=== PATIENT | male | born 1995 | race Caucasian/White ===

== ENCOUNTER 2016-12-01 16:43 | Emergency (ER) | payer BC ==
[~2016-12-01] VITALS: Ht 177.8 cm; Wt 83.5 kg
[2016-12-01 16:55] VITALS: Ht 177.8 cm; Wt 83.5 kg
[2016-12-01] MEDS ORDERED: LIDOCAINE 1%/EPI (MDV) 20 ML INJ INFIL ONE (18:30)
--- NOTE | 2016-12-01 18:32 | ERD ---
ER Documentation Chief Complaint Date/Time DATE: 12/01/16 TIME: 18:28 Chief Complaint POSSIBLE ABSCESS LEFT SIDE CHIN AREA X 5 DAYS HPI Patient is a 21-year-old male who presents with gradual onset, constant, progressive pain and swelling to left chin. Symptoms began 5 days ago, per patient appeared as a small pimple. Yesterday, his mother tried to pop the pimple, and since that time he has had increased pain and mild swelling to the area. Patient does state that there is moderate amount of pus expressed yesterday. No spontaneous drainage, no fever. ROS All systems reviewed and are negative except as per history of present illness. Medications Home Meds Active Scripts Ibuprofen* (Motrin*) 600 Mg Tab, 600 MG PO Q8, #30 TAB Prov:GRISEL TONG MD 12/01/16 Cephalexin* (Keflex*) 500 Mg Capsule, 500 MG PO QID for 10 Days, CAP Prov:GRISEL TONG MD 12/01/16 Sulfamethoxazole-Trimethoprim* (Bactrim* DS) 800-160 Mg Tab, 1 TAB PO BID for 10 Days, TAB Prov:GRISEL TONG MD 12/01/16 Reported Medications [None] No Conflict Check 08/17/09 Allergies Allergies: Coded Allergies: No Known Allergies (Verified Allergy, Mild, 08/17/09) PMhx/Soc Past medical history: None Past surgical history: None Social history: Denies tobacco or alcohol Medical and Surgical Hx: pt denies Surgical Hx History of Surgery: No Hx Neurological Disorder: No Hx Respiratory Disorders: No Hx Cardiac Disorders: Yes (MURMUR) Hx Miscellaneous Medical Probl: No Hx Alcohol Use: No Hx Substance Use: No Hx Tobacco Use: No Smoking Status: Never smoker FmHx Family History: No coronary disease, No diabetes Physical Exam Vitals Vital Signs Date Time Temp Pulse Resp B/P Pulse Ox O2 Delivery O2 Flow Rate FiO2 12/01/16 16:55 97.7 77 18 132/85 99 Physical Exam Const: Alert, no acute distress Head: Atraumatic Eyes: Normal Conjunctiva, no pallor or icterus ENT: Normal External Ears, Nose and Mouth. Moist mucous membranes. 3 cm in diameter area of erythema and induration to left lower mandible 3 cm lateral to midline. No spontaneous drainage. Patient has a lemus and location is at the level facial hair. Neck: Full range of motion. No significant adenopathy. No meningismus. 1 cm midline nontender firm neck nodule Resp: Clear to auscultation bilaterally Cardio: Regular rate and rhythm, no murmurs Abd: Soft, non tender, non distended. Skin: No petechiae or rashes Ext: No cyanosis, or edema Neur: Awake and alert, cranial nerves II through XII intact bilaterally, strength and sensation intact in 4 extremities. Psych: Normal Mood and Affect Results 24 hrs Current Medications Medications (Trade) Dose Ordered Sig/Elizabeth Route PRN Reason Start Time Stop Time Status Last Admin Dose Admin Lidocaine/ Epinephrine (Xylocaine 1%/ Epi (Mdv) 20 ml) 20 ml ONCE ONCE INFIL 12/01/16 18:30 12/01/16 18:31 DC Lidocaine/ Epinephrine (Xylocaine 1%/ Epi) 20 ml ONCE ONCE INFIL 12/01/16 19:00 12/01/16 19:01 DC Procedures/MDM Abscess Incision and Drainage with irrigation by me: Location: Left chin Anesthesia: Local 1% lidocaine with epinephrine Technique: Cleaned with chlorhexidine, incised with 11 blade scalpel approximately 5 mm, moderate pus expressed, gently probed with forceps Packing: None Complications: None 48 hour wound check. Scar minimization instructions given. Exam and w/u not consistent w/ sepsis, deep space infection, or foreign body. MDM: Patient with abscess to left chin with mild cellulitis. I&D performed with expression of moderate amount of pus. There is no evidence of deep space infection. The area of cellulitis and small and focal. The patient is appropriate for outpatient treatment with Bactrim and Keflex. Have advised the patient and mother on return precautions. We will give Motrin for pain. Based on history, it is likely that the abscess began as a folliculitis. Advised the patient that the risk of recurrence can be reduced by shaving his lemus. Departure Diagnosis: Primary Impression: Abscess of chin Condition: GRISEL Lara MD Dec 01, 2016 18:32
[2016-12-01] MEDS ORDERED: BACTDS PO (18:33)
[2016-12-01] MEDS ORDERED: CEPH-443 PO (18:33)
[2016-12-01] MEDS ORDERED: IBUP-1542 PO (18:59)
[2016-12-01] MEDS ORDERED: LIDOCAINE 1%/EPI 30 ML INJ INFIL ONE (19:00)
== END 2016-12-01 19:24 | disposition home or self-care (01) ==
LOC: FTE 16:43
DX: L02.01 Cutaneous abscess of face (principal)
CPT/HCPCS: 10060; Z7502; Z7610